=== PATIENT | male | born 1995 | race Caucasian/White ===

== ENCOUNTER 2018-01-25 20:11 | Emergency (ER) | payer OTHER, SELFPAY ==
[2018-01-25 20:14] VITALS: BP 120/85; PULSE 64; RESP 14; TEMP 37; O2SAT 96; BMI 41.0
--- NOTE | 2018-01-25 20:20 | NURSING ---
PER [facility] PATIENT IS A DRUG TEST BY REQUEST ONLY.
--- NOTE | 2018-01-25 21:06 | RAD_ITS ---
STUDY: X-RAY - LEFT TIBIA AND FIBULA REASON FOR EXAM: Male, 22 years old. Injury TECHNIQUE: 2 view(s) of the tibia and fibula were obtained. COMPARISON: None. FINDINGS: There is chronic fracture deformity of the distal tibia and fibula. There is ossification at the distal interosseous membrane. There is no acute fracture. There is no osseous destruction. The soft tissue structures are unremarkable. RAD/Tibia & Fibula 2 Views IMPRESSION: No acute fracture Electronically Signed: Sami Villalta MD at 21:47 EDT Tel , Service support ,
--- NOTE | 2018-01-25 21:06 | RAD_ITS ---
STUDY: X-RAY - RIGHT FOOT CLINICAL: Male, 22 years old. Injury TECHNIQUE: 3 view(s) of the foot. COMPARISON: None. FINDINGS: Normal talus, calcaneus, and tarsal bones. Normal visualized subtalar, talonavicular, calcaneocuboid, tarsal and tarsometatarsal articulations. Normal metatarsi. Normal metatarsophalangeal joint of the great toe. Normal tibial and fibular sesamoid bones. Normal interphalangeal joint of the great toe. Normal phalanges of the great toe. Normal second through fifth metatarsophalangeal joints. Normal interphalangeal joints and phalanges of the lesser toes. The soft tissue structures are unremarkable. RAD/Foot min 3 Views IMPRESSION: Normal x-ray examination of the foot. Electronically Signed: Sami Villalta MD at 21:45 EDT Tel , Service support ,
--- NOTE | 2018-01-25 21:06 | RAD_ITS ---
STUDY: X-RAY - RIGHT TIBIA AND FIBULA REASON FOR EXAM: Male, 22 years old. Injury TECHNIQUE: 2 view(s) of the tibia and fibula were obtained. COMPARISON: None. FINDINGS: Normal visualized tibia. Normal visualized fibula. The soft tissue structures are unremarkable. RAD/Tibia & Fibula 2 Views IMPRESSION: Normal x-ray examination of the tibia and fibula. Electronically Signed: aSmi Villalta MD at 21:47 EDT Tel , Service support ,
--- NOTE | 2018-01-25 21:06 | RAD_ITS ---
STUDY: X-RAY - LEFT FOOT CLINICAL: Male, 22 years old. Injury TECHNIQUE: 3 view(s) of the foot. COMPARISON: None. FINDINGS: Normal talus, calcaneus, and tarsal bones. Normal visualized subtalar, talonavicular, calcaneocuboid, tarsal and tarsometatarsal articulations. Normal metatarsi. Normal metatarsophalangeal joint of the great toe. Normal tibial and fibular sesamoid bones. Normal interphalangeal joint of the great toe. Normal phalanges of the great toe. Normal second through fifth metatarsophalangeal joints. Normal interphalangeal joints and phalanges of the lesser toes. The soft tissue structures are unremarkable. RAD/Foot min 3 Views IMPRESSION: Normal x-ray examination of the foot. Electronically Signed: Sami Villalta MD at 21:45 EDT Tel , Service support ,
--- NOTE | 2018-01-25 21:55 | ED.VISSUMM ---
- ER Visit Summary Date of Service: 01/25/18 Chief Complaint: Bilateral leg pain History of Present Illness: The patient is a 22 M states that yesterday at work he had a table with numerous parts on it wait at least 100 pounds fall striking him in the bilateral feet and shins. He notes bruising and pain. He was sent to the emergency department for evaluation. This is a Workmen's Comp. case. Physical Examination: Afebrile vital signs are stable Gen: Well-nourished well-developed obese Head: Normocephalic atraumatic Eyes: Perrl EOMI ENT: TMs clear no rhinorrhea moist mucous membranes Neck: Supple no lymphadenopathy no JVD nontender CVS: Regular rate rhythm no murmurs normal S1-S2 Respiratory: No distress clear to auscultation bilaterally chest nontender Abdomen: Soft nontender nondistended normal bowel sounds no masses Back: Nontender Extremity: Bilateral anterior legs show contusions. There is tenderness over the dorsum of each foot. Right greater than left Skin: Normal color no rash Neuro: alert orientated ?3 CN II-XII intact normal strength sensation reflexes gait cerebellar Psych: Normal affect normal mood Test Results: Patient underwent x-rays of the bilateral tib-fib and feet. This is negative for acute fracture. Emergency Department Course and Treatment: The patient will be discharged home with supportive care. He will follow-up with [facility] as needed. Impression:. Bilateral leg and foot contusions This note was generated with [employer] dictation software. It may contain incorrect words, spelling, and punctuation that were not noted in review of the chart prior to signing ED Disposition - Plan for ED Patient: Disposition: Home or Assisted Living Chief Complaint: Lower Extremity Injury Instructions: ED Contusion Lower Ext Referrals: Care Physician,No Primary [Primary Care Provider] - [facility] PHYSICIANS] - As Needed
== END 2018-01-25 22:09 | disposition home or self-care (01) ==
PROVIDERS: Emergency Provider Emergency Medicine
DX: S80.12XA Contusion of left lower leg, initial encounter (principal); S80.11XA Contusion of right lower leg, initial encounter; S90.32XA Contusion of left foot, initial encounter; S90.31XA Contusion of right foot, initial encounter; E66.9 Obesity, unspecified; W22.8XXA Striking against or struck by other objects, initial encounter; Y93.9 Activity, unspecified; Y92.9 Unspecified place or not applicable
CPT/HCPCS: 73590; 73630; 99282

== ENCOUNTER 2018-03-13 19:55 | Emergency (ER) | payer OTHER, SELFPAY ==
[2018-03-13 19:56] VITALS: BP 130/62; PULSE 73; RESP 16; TEMP 36.7; O2SAT 96; BMI 39.6
[2018-03-13] MEDS: Diphth,Pertuss(Acell),Tet Vac 0.5 ML Vial IM (22:05)
--- NOTE | 2018-03-13 22:16 | ED.VISSUMM ---
- ER Visit Summary Date of Service: 03/13/18 Chief Complaint: Left thumb laceration History of Present Illness: The patient is a 22 M presenting with left thumb laceration. This occurred just prior to arrival. He states he was cutting tape on a fishing pole with a knife and slipped and cut his left thumb and left middle finger. His last tetanus is unknown. He states this was a clean knife and it was not used to cut fish. Bleeding is controlled. No other complaints. Physical Examination: Vitals are stable. Patient is afebrile. Alert no acute distress. HEENT exam is unremarkable. Lungs are clear and equal bilaterally. Heart is regular rate and rhythm. Extremities superficial abrasion left middle finger, 2.5 cm laceration to finger pad of left thumb. Tendon function is normal. Normal cap refill Skin is warm and dry. No focal neurologic deficit. Remainder of exam is unremarkable. Emergency Department Course and Treatment: Patient was given tetanus IM. Laceration was repaired under sterile conditions. Anesthetized with lidocaine. Irrigated with saline. 5, 5-0 simple sutures were placed. Patient tolerated this well. Advised wound care instructions. Advised to follow-up with the primary care physician. Advised return ED for worsening complaints. Disposition: Discharge home Impression: Left thumb laceration, laceration repair This note was generated with [employer] dictation software. It may contain incorrect words, spelling, and punctuation that were not noted in review of the chart prior to signing ED Disposition - Plan for ED Patient: Chief Complaint: Laceration Referrals: Care Physician,No Primary [Primary Care Provider] -
--- NOTE | 2018-03-13 22:52 | ED.DEP ---
ED Disposition - Plan for ED Patient: Chief Complaint: Laceration Instructions: ED Laceration Hand Referrals: Care Physician,No Primary [Primary Care Provider] - Emir Alfonso III, MD [STAFF PHYSICIAN] -
[2018-03-13 23:09] VITALS: RESP 16
--- NOTE | 2018-03-13 23:10 | ED.RN ---
REVIEWED D/C INSTRUCTIONS, FOLLOW UP CARE, AND S/S THAT WOULD WARRANT A RETURN TO THE ED WITH PT. PT VERBALIZED AN UNDERSTANDING AND DENIES FURTHER QUESTIONS FOR THIS RN. PT SKIN P/W/D, RESP EVEN AND UNLABORED, PT A&O X 3, NO DISTRESS NOTED. PT AMBULATED OUT OF ED, GAIT STEADY.
== END 2018-03-13 23:11 | disposition home or self-care (01) ==
LOC: ED 22:08
PROVIDERS: Emergency Provider Emergency Medicine
DX: S61.012A Laceration without foreign body of left thumb without damage to nail, initial encounter (principal); S60.413A Abrasion of left middle finger, initial encounter; W26.0XXA Contact with knife, initial encounter; Y93.9 Activity, unspecified; Y92.9 Unspecified place or not applicable
CPT/HCPCS: 12001; 90715; 99283